=== PATIENT | female | born 1980 | race African-American/Black ===

== ENCOUNTER 2019-07-21 07:46 | Emergency (ER) | payer OTHER ==
--- NOTE | 2019-07-21 08:06 | EDPHYS ---
Physician Documentation [facility] Name: Ladan Mendoza Age: 39 yrs Sex: Female : 1980 Arrival Date: 07/21/2019 Time: 07:48 Bed 14 Private MD: [place] Physician Lm Link HPI: 07/21 07:59 This 39 yrs old Black Female presents to ER via Ambulatory with complaints of Eye zenon Swelling. 07:59 The patient is experiencing pain, redness. Onset: The symptoms/episode began/occurred 2 zenon day(s) ago. Duration: the symptoms are continuous. Aggravated by nothing. Alleviated by nothing. Associated signs and symptoms: Pertinent positives:. Patient does not utilize any form of vision correction. Severity of symptoms: At their worst the symptoms were mild. Historical: - Allergies: 07:58 NKA; ss - Home Meds: 07:58 amlodipine 5 mg tab once daily [Active]; hydrochlorothiazide 25 mg Oral tab 1 tab once ss daily [Active]; hydroxyzine HCl 50 mg Oral tab take 1 to 2 capsules every night as needed for sleep [Active]; metformin 500 mg Oral tab 2 times per day [Active]; Risperdal 3 mg Oral tab at bedtime [Active]; Metoprolol Tartrate Oral [Active]; - PMHx: 07:58 Diabetes - NIDDM; Hypertension; Schizophrenia; ss - PSHx: 07:58 breast reduction; ; ss - Immunization history:: Adult Immunizations up to date. - Social history:: Smoking status: Patient/guardian denies using tobacco. - Ebola Screening: : Patient denies exposure to infectious person Patient denies travel to an Ebola-affected area in the 21 days before illness onset. ROS: 08:00 Constitutional: Negative for fever, chills, and weight loss, ENT: Negative for injury, zenon pain, and discharge, Neck: Negative for injury, pain, and swelling, Cardiovascular: Negative for chest pain, palpitations, and edema, Respiratory: Negative for shortness of breath, cough, wheezing, and pleuritic chest pain, Abdomen/GI: Negative for abdominal pain, nausea, vomiting, diarrhea, and constipation, Back: Negative for injury and pain, : Negative for injury, bleeding, discharge, and swelling, MS/Extremity: Negative for injury and deformity, Skin: Negative for injury, rash, and discoloration, Neuro: Negative for headache, weakness, numbness, tingling, and seizure, Psych: Negative for depression, anxiety, suicide ideation, homicidal ideation, and hallucinations, Allergy/Immunology: Negative for hives, rash, and allergies, Endocrine: Negative for neck swelling, polydipsia, polyuria, polyphagia, and marked weight changes, Hematologic/Lymphatic: Negative for swollen nodes, abnormal bleeding, and unusual bruising. 08:00 Eyes: Positive for pain, redness, swelling, of the left lower eyelid. Exam: 08:00 Constitutional: This is a well developed, well nourished patient who is awake, alert, zenon and in no acute distress. Head/Face: Normocephalic, atraumatic. Eyes: Pupils equal round and reactive to light, extra-ocular motions intact. Lids and lashes normal. Conjunctiva and sclera are non-icteric and not injected. Cornea within normal limits. Periorbital areas with no swelling, redness, or edema. ENT: Nares patent. No nasal discharge, no septal abnormalities noted. Tympanic membranes are normal and external auditory canals are clear. Oropharynx with no redness, swelling, or masses, exudates, or evidence of obstruction, uvula midline. Mucous membranes moist. Neck: Trachea midline, no thyromegaly or masses palpated, and no cervical lymphadenopathy. Supple, full range of motion without nuchal rigidity, or vertebral point tenderness. No Meningismus. Chest/axilla: Normal chest wall appearance and motion. Nontender with no deformity. No lesions are appreciated. Cardiovascular: Regular rate and rhythm with a normal S1 and S2. No gallops, murmurs, or rubs. Normal PMI, no JVD. No pulse deficits. Respiratory: Lungs have equal breath sounds bilaterally, clear to auscultation and percussion. No rales, rhonchi or wheezes noted. No increased work of breathing, no retractions or nasal flaring. Abdomen/GI: Soft, non-tender, with normal bowel sounds. No distension or tympany. No guarding or rebound. No evidence of tenderness throughout. Back: No spinal tenderness. No costovertebral tenderness. Full range of motion. Skin: Warm, dry with normal turgor. Normal color with no rashes, no lesions, and no evidence of cellulitis. MS/ Extremity: Pulses equal, no cyanosis. Neurovascular intact. Full, normal range of motion. Neuro: Awake and alert, GCS 15, oriented to person, place, time, and situation. Cranial nerves II-XII grossly intact. Motor strength 5/5 in all extremities. Sensory grossly intact. Cerebellar exam normal. Normal gait. Psych: Awake, alert, with orientation to person, place and time. Behavior, mood, and affect are within normal limits. Vital Signs: 07:58 BP 125 / 71; Pulse 84; Resp 16; Temp 98.8(TE); Pulse Ox 100% on R/A; Weight 103.42 kg; ss Height 5 ft. 6 in. (167.64 cm); Pain 5/10; 07:58 Body Mass Index 36.80 (103.42 kg, 167.64 cm) ss MDM: 07:51 Patient medically screened. [facility] 08:01 Data reviewed: vital signs, nurses notes. [facility] Administered Medications: 08:26 Drug: Tobramycin Ointment (0.3 %) 1 application Route: Ophthalmic; Site: right eye; aa5 08:40 Follow up: Response: No adverse reaction aa5 Disposition: 07/21/19 08:04 Discharged to Home. Impression: Abscess of left lower eyelid, Type 2 diabetes mellitus. - Condition is Stable. - Discharge Instructions: Skin Abscess, Type 2 Diabetes Mellitus, Diagnosis, Adult, Stye. - Prescriptions for Tobrex 0.3 % Ophthalmic ointment - apply 1 inch ribbon by OPHTHALMIC route 3 times per day; 3.5 gram. - Medication Reconciliation Form, Thank You Letter, Antibiotic Education, Prescription Opioid Use form. - Follow up: Private Physician; When: 2 - 3 days; Reason: Recheck today's complaints, Continuance of care, Re-evaluation by your physician. Follow up: Rafita Wilkerson MD; When: 2 - 3 days; Reason: Recheck today's complaints, Continuance of care, Re-evaluation by your physician. - Problem is new. - Symptoms have improved. Signatures: Lm Link MD MD cha Calderon, Audri, RN RN aa5 Daysi Quintana RN RN ss Corrections: (The following items were deleted from the chart) 08:54 08:04 07/21/2019 08:04 Discharged to Home. Impression: Abscess of left lower eyelid; aa5 Type 2 diabetes mellitus. Condition is Stable. Forms are Medication Reconciliation Form, Thank You Letter, Antibiotic Education, Prescription Opioid Use. Follow up: Private Physician; When: 2 - 3 days; Reason: Recheck today's complaints, Continuance of care, Re-evaluation by your physician. Follow up: Rafita Wilkerson; When: 2 - 3 days; Reason: Recheck today's complaints, Continuance of care, Re-evaluation by your physician. Problem is new. Symptoms have improved. zenon
--- NOTE | 2019-07-21 08:06 | ER ---
Nurse's Notes [facility] Name: Ladan Mendoza Age: 39 yrs Sex: Female : 1980 Arrival Date: 07/21/2019 Time: 07:48 Bed 14 Private MD: Diagnosis: Abscess of left lower eyelid;Type 2 diabetes mellitus Presentation: 07/21 07:54 Presenting complaint: Patient states: Swelling to R lower eye lid that began yesterday. ss Pt reports it is tender to the touch. Transition of care: patient was not received from another setting of care. Onset of symptoms was July 20, 2019. Risk Assessment: Do you want to hurt yourself or someone else? Patient reports no desire to harm self or others. Initial Sepsis Screen: Does the patient meet any 2 criteria? No. Patient's initial sepsis screen is negative. Does the patient have a suspected source of infection? No. Patient's initial sepsis screen is negative. Care prior to arrival: None. 07:54 Method Of Arrival: Ambulatory 07:54 Acuity: RUPA 5 ss Historical: - Allergies: 07:58 NKA; ss - Home Meds: 07:58 amlodipine 5 mg tab once daily [Active]; hydrochlorothiazide 25 mg Oral tab 1 tab once ss daily [Active]; hydroxyzine HCl 50 mg Oral tab take 1 to 2 capsules every night as needed for sleep [Active]; metformin 500 mg Oral tab 2 times per day [Active]; Risperdal 3 mg Oral tab at bedtime [Active]; Metoprolol Tartrate Oral [Active]; - PMHx: 07:58 Diabetes - NIDDM; Hypertension; Schizophrenia; ss - PSHx: 07:58 breast reduction; ; ss - Immunization history:: Adult Immunizations up to date. - Social history:: Smoking status: Patient/guardian denies using tobacco. - Ebola Screening: : Patient denies exposure to infectious person Patient denies travel to an Ebola-affected area in the 21 days before illness onset. Screenin:30 Abuse screen: Denies threats or abuse. Nutritional screening: No deficits noted. aa5 Tuberculosis screening: No symptoms or risk factors identified. Fall Risk None identified. Assessment: 08:26 General: Appears comfortable, Behavior is calm, cooperative. Pain: Complains of pain in aa5 right lower eyelid Pain currently is 5 out of 10 on a pain scale. Quality of pain is described as tender, Is continuous. Neuro: Level of Consciousness is awake, alert, obeys commands, Oriented to person, place, time, situation. Cardiovascular: Patient's skin is warm and dry. Respiratory: Airway is patent Respiratory effort is even, unlabored, Respiratory pattern is regular, symmetrical. GI: No signs and/or symptoms were reported involving the gastrointestinal system. : No signs and/or symptoms were reported regarding the genitourinary system. EENT: swelling and redness noted to right lower eyelid . Derm: Skin is dry, Skin is normal, Skin temperature is warm. Musculoskeletal: Range of motion: intact in all extremities. Vital Signs: 07:58 BP 125 / 71; Pulse 84; Resp 16; Temp 98.8(TE); Pulse Ox 100% on R/A; Weight 103.42 kg; ss Height 5 ft. 6 in. (167.64 cm); Pain 5/10; 07:58 Body Mass Index 36.80 (103.42 kg, 167.64 cm) ED Course: 07:48 Patient arrived in ED. mr 07:51 Lm Link MD is Attending Physician. zenon 07:56 Triage completed. ss 07:58 Arm band placed on right wrist. 07:59 Robyn Samuels, RN is Primary Nurse. aa5 08:04 Rafita Wilkerson MD is Referral Physician. zenon 08:26 Patient has correct armband on for positive identification. Bed in low position. Call aa5 light in reach. Side rails up X 1. 08:40 No provider procedures requiring assistance completed. Patient did not have IV access aa5 during this emergency room visit. Administered Medications: 08:26 Drug: Tobramycin Ointment (0.3 %) 1 application Route: Ophthalmic; Site: right eye; aa5 08:40 Follow up: Response: No adverse reaction aa5 Outcome: 08:04 Discharge ordered by . zenon 08:40 Discharged to home ambulatory. aa5 08:40 Condition: good 08:40 Discharge instructions given to patient, Instructed on discharge instructions, follow up and referral plans. medication usage, Demonstrated understanding of instructions, follow-up care, medications, Prescriptions given X 1. 08:43 Patient left the ED. aa5 Signatures: Lm Link MD MD cha Rivera, Mary mr Calderon, Robyn, RN RN aa5 Daysi Quintana RN RN ss Corrections: (The following items were deleted from the chart) 08:55 08:54 Patient left the ED. eliseo gomes
[2019-07-21] MEDS ORDERED: TOBRAMYCIN SULF 0.3% OPTH OINT ONE (08:24)
[2019-07-21 09:00] VITALS: BP 125/71; TEMP 98.8; O2SAT 100
== END 2019-07-21 08:54 | disposition home or self-care (01) ==
LOC: ER 07:46
DX: H00.035 Abscess of left lower eyelid (principal); E11.9 Type 2 diabetes mellitus without complications; I10 Essential (primary) hypertension; F20.9 Schizophrenia, unspecified
CPT/HCPCS: 99283